=== PATIENT | male | born 1965 | race Caucasian/White ===

== ENCOUNTER 2017-05-06 04:39 | Emergency (ER) | payer OTHER, SELFPAY ==
[2017-05-06 04:48] VITALS: BP 142/84; PULSE 87; RESP 16; TEMP 36.9; O2SAT 96; BMI 47.2
--- NOTE | 2017-05-06 04:55 | XR_ITS ---
XR knee LT 3V HISTORY: ITS.REASON: pain ORDERING PHYSICIAN: Holger Welch MD PATIENT AGE: 51 years COMPARISON: None FINDINGS: There is been prior ACL repair. Moderate osteoarthritic changes are present worse at the medial compartment. No obvious fracture or dislocation. There is increased density in the suprapatellar region consistent with knee joint effusion. Chondrocalcinosis is present involving the lateral meniscus. IMPRESSION: Prior ACL repair with moderate osteoarthritis of the medial compartment and patellofemoral joint with knee joint effusion No acute fracture
--- NOTE | 2017-05-06 05:16 | HMH.EDGENADL ---
ED Disposition Clinical Impression: Arthritis Knee pain, left Qualifiers: Chronicity: acute Qualified Code(s): M25.562 - Pain in left knee Disposition: Home, Self-Care Condition on Discharge: Good Instructions: DI for Knee Pain Additional Instructions: call pcp for follow up Prescriptions: predniSONE [Prednisone 20mg Tab] 20 mg PO DAILY #10 tab Referrals: Gaby Garsia PA [Primary Care Provider] - - Critical Care Critical Care Time: No Attestation: On 05/06/17, the high probability of a clinically significant, sudden or life threatening deterioration of the following system(s) required my full and direct attention, intervention and personal management. The time I documented below is in addition to time spent performing reported procedures but includes the following listed in this critical care notation. Medical Decision Making - Medical Records Medical records reviewed: Yes: I reviewed the patient's medical records. - Jf Inquiry Pt receiving controlled substance: No Vital Signs: 05/06/17 04:48 05/06/17 06:11 Temperature 98.4 F Temperature Source Oral Pulse Rate [Right Brachial] 87 90 Respiratory Rate 16 20 Blood Pressure [Right Arm] 142/84 154/85 Blood Pressure Mean [Right Arm] 103 108 Blood Pressure Source [Right Arm] Automatic Cuff Automatic Cuff Blood Pressure Position [Right Arm] Sitting Sitting 02 Sat by Pulse Oximetry 96 96 Oxygen Delivery Method Room Air Room Air - Lab Data Lab results reviewed: Yes: I reviewed the patient's lab results. Lab Results 05/06/17 05:20: WBC 11.4 H, RBC 4.94, Hgb 14.5, Hct 43.3, MCV 87.7, MCH 29.4, MCHC 33.5, RDW 13.5, Plt Count 235, MPV 7.9, Neut % (Auto) 69.9, Lymph % (Auto) 20.6, [place] % (Auto) 7.8, Eos % (Auto) 1.3, Baso % (Auto) 0.4, Neut # (Auto) 8.0 H, Lymph # (Auto) 2.4, [place] # (Auto) 0.9, Eos # (Auto) 0.1, Baso # (Auto) 0.1 05/06/17 05:20: Sodium 140, Potassium 3.4 L, Chloride 104, Carbon Dioxide 26, Anion Gap 13.4, BUN 19 H, Creatinine 1.21, Estimated Creat Clear 68, Estimated GFR 63, Est GFR ( Amer) 76, Glucose 173 H, Uric Acid 11.2 H, Calcium 9.0, Total Bilirubin 0.7, AST 22, ALT 51, Alkaline Phosphatase 92, Total Protein 8.2, Albumin 3.8, Globulin 4.4 H, Albumin/Globulin Ratio 0.9 L Result diagrams: 05/06/17 05:20 05/06/17 05:20 Orders (Tests/Meds): ED MEDICATIONS Discontinued Medications Generic Name Dose Route Start Last Admin Trade Name Lashaq PRN Reason Stop Dose Admin Meperidine HCl 25 mg 05/06/17 06:17 05/06/17 06:29 Meperidine 25mg/Ml 1ml Syringe IV 05/06/17 06:18 25 mg ONCE ONE Administration Methylprednisolone Sodium Succinate 125 mg 05/06/17 06:16 05/06/17 06:29 Solu-Medrol 125mg/2ml Vial IV 05/06/17 06:17 125 mg ONCE ONE Administration Promethazine HCl 12.5 mg 05/06/17 06:18 05/06/17 06:29 Phenergan 25mg/Ml 1ml Vial IV 05/06/17 06:19 12.5 mg ONCE ONE Administration Sodium Chloride 25 ml 05/06/17 06:18 05/06/17 06:29 Sod Chlor 0.9% 25ml Bag IV 05/06/17 06:19 25 ml ONCE ONE Administration ORDERS Category Date Time Status ESR [Erythrocyte Sedimentation Rate] Stat Lab 05/06/17 05:20 Received - Radiology Data #1 Image(s): Knee Image Reviewed: Yes I reviewed the patient's radiology image Preliminary Findings: No Fracture Seen General Adult HPI - General Chief complaint: PAIN Stated complaint: Pain in Left Knee no Accident occurred Time Seen by Provider: 05/06/17 05:17 Mode of Arrival: Wheelchair Source of Information: Patient, Medical Record Limitations: Physical Limitations Description of Symptoms (Recalled from ER Triage Doc. by RN): reports left knee pain and can't get any relief . reports cortisone shots have helped in the past. left knee is swollen and warm to touch. - History of Present Illness HPI narrative: pt with lt knee pain and swelling with no fever or rash and no trauma - has hx of djd Onset (ago): day(s)
--- NOTE | 2017-05-06 05:21 | ED_ITS ---
ED Disposition Clinical Impression: Arthritis Knee pain, left Qualifiers: Chronicity: acute Qualified Code(s): M25.562 - Pain in left knee Disposition: Home, Self-Care Condition on Discharge: Good Instructions: DI for Knee Pain Additional Instructions: call pcp for follow up Prescriptions: predniSONE [Prednisone 20mg Tab] 20 mg PO DAILY #10 tab Referrals: Gaby Garsia PA [Primary Care Provider] - - Critical Care Critical Care Time: No Attestation: On 05/06/17, the high probability of a clinically significant, sudden or life threatening deterioration of the following system(s) required my full and direct attention, intervention and personal management. The time I documented below is in addition to time spent performing reported procedures but includes the following listed in this critical care notation. Medical Decision Making - Medical Records Medical records reviewed: Yes: I reviewed the patient's medical records. - Jf Inquiry Pt receiving controlled substance: No Vital Signs: 05/06/17 04:48 05/06/17 06:11 Temperature 98.4 F Temperature Source Oral Pulse Rate [Right Brachial] 87 90 Respiratory Rate 16 20 Blood Pressure [Right Arm] 142/84 154/85 Blood Pressure Mean [Right Arm] 103 108 Blood Pressure Source [Right Arm] Automatic Cuff Automatic Cuff Blood Pressure Position [Right Arm] Sitting Sitting 02 Sat by Pulse Oximetry 96 96 Oxygen Delivery Method Room Air Room Air - Lab Data Lab results reviewed: Yes: I reviewed the patient's lab results. Lab Results 05/06/17 05:20: WBC 11.4 H, RBC 4.94, Hgb 14.5, Hct 43.3, MCV 87.7, MCH 29.4, MCHC 33.5, RDW 13.5, Plt Count 235, MPV 7.9, Neut % (Auto) 69.9, Lymph % (Auto) 20.6, [place] % (Auto) 7.8, Eos % (Auto) 1.3, Baso % (Auto) 0.4, Neut # (Auto) 8.0 H, Lymph # (Auto) 2.4, [place] # (Auto) 0.9, Eos # (Auto) 0.1, Baso # (Auto) 0.1 05/06/17 05:20: Sodium 140, Potassium 3.4 L, Chloride 104, Carbon Dioxide 26, Anion Gap 13.4, BUN 19 H, Creatinine 1.21, Estimated Creat Clear 68, Estimated GFR 63, Est GFR ( Amer) 76, Glucose 173 H, Uric Acid 11.2 H, Calcium 9.0 , Total Bilirubin 0.7, AST 22, ALT 51, Alkaline Phosphatase 92, Total Protein 8.2, Albumin 3.8, Globulin 4.4 H, Albumin/Globulin Ratio 0.9 L Result diagrams: 05/06/17 05:20 05/06/17 05:20 Orders (Tests/Meds): ED MEDICATIONS Discontinued Medications Generic Name Dose Route Start Last Admin Trade Name Freq PRN Reason Stop Dose Admin Meperidine HCl 25 mg 05/06/17 06:17 05/06/17 06:29 Meperidine 25mg/Ml 1ml Syringe IV 05/06/17 06:18 25 mg ONCE ONE Administration Methylprednisolone Sodium Succinate 125 mg 05/06/17 06:16 05/06/17 06:29 Solu-Medrol 125mg/2ml Vial IV 05/06/17 06:17 125 mg ONCE ONE Administration Promethazine HCl 12.5 mg 05/06/17 06:18 05/06/17 06:29 Phenergan 25mg/Ml 1ml Vial IV 05/06/17 06:19 12.5 mg ONCE ONE Administration Sodium Chloride 25 ml 05/06/17 06:18 05/06/17 06:29 Sod Chlor 0.9% 25ml Bag IV 05/06/17 06:19 25 ml ONCE ONE Administration ORDERS Category Date Time Status ESR [Erythrocyte Sedimentation Rate] Stat Lab 05/06/17 05:20 Received - Radiology Data #1 Image(s): Knee Image Reviewed: Yes I reviewed the patient's radiology image Prelimin
[2017-05-06 06:08] LABS: Basophils # 0.1 K/mm3 (0-0.2); Basophils % 0.4 % (0.1-2.0); Eosinophils # 0.1 K/mm3 (0.0-0.4); Eosinophils % 1.3 % (0.1-12.0); Hematocrit 43.3 % (42.0-52.0); Hemoglobin 14.5 g/dL (14.1-18.0); Lymphocytes # 2.4 K/mm3 (0.7-4.5); Lymphocytes % 20.6 K/mm3 (10-50); Mean Corpuscular HGB Conc 33.5 g/dL (31.8-35.4); Mean Corpuscular Hemoglobin 29.4 pg (27.0-31.2); Mean Corpuscular Volume 87.7 fl (80-94); Mean Platelet Volume 7.9 fl (7.4-10.4); Monocytes # 0.9 K/mm3 (0.1-1.0); Monocytes % 7.8 % (1.7-9.3); Neutrophils % 69.9 % (37.0-80.0); Platelet Count 235 K/mm3 (142-424); Red Blood Count 4.94 M/mm3 (4.60-6.20); Red Cell Distribution Width 13.5 % (11.5-17.5); White Blood Count 11.4 K/mm3 (4.8-10.8)
[2017-05-06 06:11] VITALS: BP 154/85; PULSE 90; RESP 20; O2SAT 96
[2017-05-06 06:22] LABS: Alanine Aminotransferase 51 U/L (12-78); Albumin Level 3.8 gm/dL (3.4-5.0); Albumin/Globulin Ratio 0.9 (1.1-1.8); Alkaline Phosphatase 92 U/L (46-116); Anion Gap 13.4 mEq/L (5-15); Aspartate Amino Transferase 22 U/L (15-37); Bilirubin,Total 0.7 mg/dL (0.2-1.0); Blood Urea Nitrogen 19 mg/dL (7-18); Carbon Dioxide 26 mmol/L (21.0-32.0); Chloride 104 mmol/L (98-107); Creatinine Clearance Estimated 68 mL/min (0-300); Creatinine,Serum 1.21 mg/dL (0.70-1.30); Estimated Glomerular Filt Rate 63 ml/min (>60); GFR (African American) 76 ML/MIN (>60); Globulin 4.4 gm/dl (1.3-3.2); Glucose 173 mg/dL (74-106); Potassium 3.4 mmoL/L (3.5-5.1); Sodium 140 mmol/L (136-145); Total Protein,Serum 8.2 gm/dL (6.4-8.2); Uric Acid 11.2 mg/dL (2.6-7.2)
[2017-05-06 07:26] LABS: Erythrocyte Sedimentation Rate 43 mm/hr (0-20)
[2017-05-06 09:03] VITALS: BP 137/70; PULSE 67; RESP 16; TEMP 37.1; O2SAT 98
== END 2017-05-06 09:06 | disposition home or self-care (01) ==
PROVIDERS: Emergency Provider Emergency Medicine; Family Provider Physician Assistant; PCP Physician Assistant
DX: M25.562 Pain in left knee (principal); M17.12 Unilateral primary osteoarthritis, left knee; I10 Essential (primary) hypertension; E55.9 Vitamin D deficiency, unspecified
CPT/HCPCS: 73562; 80053; 84550; 85025; 85651; 96374; 96375; 99283

== ENCOUNTER → 2018-07-08 13:30 | Outpatient (CLI) | payer BC, SELFPAY ==
[2018-07-08 13:55] LABS: Basophils # 0.1 K/mm3 (0-0.2); Basophils % 0.8 % (0.1-2.0); Eosinophils # 0.2 K/mm3 (0.0-0.4); Eosinophils % 2.6 % (0.1-12.0); Hematocrit 46.6 % (42.0-52.0); Hemoglobin 16.4 g/dL (14.1-18.0); Lymphocytes # 2.2 K/mm3 (0.7-4.5); Lymphocytes % 29.1 % (10-50); Mean Corpuscular HGB Conc 35.2 g/dL (31.8-35.4); Mean Corpuscular Hemoglobin 30.6 pg (27.0-31.2); Mean Corpuscular Volume 86.9 fl (80-94); Mean Platelet Volume 8.2 fl (7.4-10.4); Monocytes # 0.4 K/mm3 (0.1-1.0); Monocytes % 5.3 % (1.7-9.3); Neutrophils # 4.6 K/mm3 (1.8-7.8); Neutrophils % 62.2 % (37.0-80.0); Platelet Count 233 K/mm3 (142-424); Red Blood Count 5.37 M/mm3 (4.60-6.20); Red Cell Distribution Width 13.5 % (11.5-17.5); White Blood Count 7.4 K/mm3 (4.8-10.8)
[2018-07-08 14:24] LABS: Anion Gap 16.5 mEq/L (5-15); Blood Urea Nitrogen 30 mg/dL (7-18); Carbon Dioxide 24 mmol/L (21.0-32.0); Chloride 97 mmol/L (98-107); Creatinine,Serum 1.18 mg/dL (0.70-1.30); Potassium 4.5 mmoL/L (3.5-5.1); Sodium 133 mmol/L (136-145)
[2018-07-08 14:25] LABS: Alanine Aminotransferase 73 U/L (12-78); Albumin Level 3.9 gm/dL (3.4-5.0); Alkaline Phosphatase 97 U/L (46-116); Aspartate Amino Transferase 40 U/L (15-37); Bilirubin,Total 0.6 mg/dL (0.2-1.0); Calcium 9.4 mg/dL (8.5-10.1); Chol/HDL Ratio 8.1 (1-3.5); Cholesterol 228 mg/dL (140-200); Estimated Glomerular Filt Rate 65 ml/min (>60); GFR (African American) 78 ML/MIN (>60); Globulin 3.8 gm/dl (1.3-3.2); Glucose 366 mg/dL (74-106); HDL Cholesterol 28 mg/dL (27-67); T4 (Thyroxine) 9.7 ug/dl (4.7-13.3); Thyroid Stimulating Hormone 2.12 uIU/ml (0.358-3.740); Total Protein,Serum 7.7 gm/dL (6.4-8.2)
[2018-07-08 14:26] LABS: Triglycerides 655 mg/dL (30-200)
[2018-07-08 16:42] LABS: Hemoglobin A1C 10.4 % (0.0-7.0)
[2018-07-09 12:34] LABS: PSA, Free 0.12 ng/mL; Prostate Specific Ag 0.2 ng/mL (0.0-4.0); Vitamin D 25 Hydroxy 10.7 ng/mL (30.0-100.0)
[2018-07-09 12:35] LABS: Microalbumin, Urine <3.0 ug/mL (Not Estab.)
== END ==
PROVIDERS: Visit Provider Physician Assistant
DX: E11.9 Type 2 diabetes mellitus without complications (principal); E55.9 Vitamin D deficiency, unspecified
CPT/HCPCS: 80053; 80061; 82043; 82652; 83036; 84153; 84154; 84436; 84443; 85025

== ENCOUNTER → 2018-12-11 16:54 | Outpatient (CLI) | payer BC, SELFPAY ==
[2018-12-11 17:09] LABS: Basophils # 0.1 K/mm3 (0-0.2); Basophils % 0.6 % (0.1-2.0); Eosinophils # 0.2 K/mm3 (0.0-0.4); Eosinophils % 2.6 % (0.1-12.0); Hematocrit 46.8 % (42.0-52.0); Hemoglobin 15.4 g/dL (14.1-18.0); Lymphocytes # 2.3 K/mm3 (0.7-4.5); Lymphocytes % 27.7 % (10-50); Mean Corpuscular Hemoglobin 30.3 pg (27.0-31.2); Mean Corpuscular Volume 91.8 fl (80-94); Mean Platelet Volume 9.1 fl (7.4-10.4); Monocytes # 0.5 K/mm3 (0.1-1.0); Monocytes % 6.6 % (1.7-9.3); Neutrophils # 5.1 K/mm3 (1.8-7.8); Neutrophils % 62.5 % (37.0-80.0); Platelet Count 263 K/mm3 (142-424); Red Cell Distribution Width 13.4 % (11.5-17.5); White Blood Count 8.1 K/mm3 (4.8-10.8)
[2018-12-11 17:26] LABS: Alanine Aminotransferase 93 U/L (12-78); Albumin Level 3.9 gm/dL (3.4-5.0); Albumin/Globulin Ratio 0.9 (1.1-1.8); Alkaline Phosphatase 93 U/L (46-116); Anion Gap 15.8 mEq/L (5-15); Aspartate Amino Transferase 127 U/L (15-37); Bilirubin,Total 0.6 mg/dL (0.2-1.0); Blood Urea Nitrogen 37 mg/dL (7-18); Calcium 9.3 mg/dL (8.5-10.1); Carbon Dioxide 24 mmol/L (21.0-32.0); Chloride 102 mmol/L (98-107); Chol/HDL Ratio 4.9 (1-3.5); Cholesterol 165 mg/dL (140-200); Creatinine,Serum 1.86 mg/dL (0.70-1.30); Estimated Glomerular Filt Rate 38 ml/min (>60); Free T4 (Free Thyroxine) 1.27 ng/dl (0.76-1.46); GFR (African American) 46 ML/MIN (>60); Globulin 4.3 gm/dl (1.3-3.2); Glucose 309 mg/dL (74-106); HDL Cholesterol 34 mg/dL (27-67); LDL Cholesterol 78 mg/dL (0-130); Potassium 4.8 mmoL/L (3.5-5.1); Sodium 137 mmol/L (136-145); Thyroid Stimulating Hormone 2.47 uIU/ml (0.358-3.740); Total Protein,Serum 8.2 gm/dL (6.4-8.2); Triglycerides 267 mg/dL (30-200); VLDL Cholesterol 53 mg/dL (0-40)
[2018-12-11 17:38] LABS: Hemoglobin A1C 11.3 % (0.0-7.0)
== END ==
PROVIDERS: Visit Provider Nurse Practitioner Family
DX: E11.9 Type 2 diabetes mellitus without complications (principal)
CPT/HCPCS: 80053; 80061; 83036; 84439; 84443; 85025

== ENCOUNTER → 2019-01-29 13:49 | Outpatient (CLI) | payer BC, SELFPAY ==
--- NOTE | 2019-01-29 13:51 | CA_ITS ---
APPROVED REPORT EXAM: Comprehensive 2D, Doppler, and color-flow Echocardiogram Flight Control Specialist: Arely Landeros CRT Ht: 5 ft 7 in Wt: 331lbs BSA: 2.50 BP: 156/89 mmHg Indications: abn ekg, obesity, htn, dm,hld 2D Dimensions LVOT 1.95 cm (M/F) 1.5-2.5 M-Mode Dimensions RVDd 2.26 cm (0.9-2.6) LVDd 5.38 cm (3.5-5.7) LVDs 3.19 cm (3.5-5.7) IVSd 1.53 cm (0.6-1.1) PWd 1.00 cm (0.6-1.1) EF (Teich) 71.00% FS 40.70% EDV (Teich) 140.10 mL ESV (Teich) 40.60 mL LV Diastology E/A Ratio 0.68 Mitral Valve MV A Velocity 84.00 (40-130 cm/s) Left Ventricle Left atrium is mildly enlarged, left ventricle is normal size, mild concentric left ventricular hypertrophy, visually estimated ejection fraction 55% with no regional wall motion abnormality, grade 1 diastolic dysfunction seen without tissue Doppler evidence of raise left atrial pressure. Right Ventricle Right atrium and right ventricular normal size and contractility. Aortic Valve Aortic valve is minimally thickened and fibrosed. There is no aortic stenosis or aortic insufficiency. Mitral Valve Mitral valve is grossly normal, there is mild mitral regurgitation. Tricuspid Valve Tricuspid valve is grossly normal, there is mild tricuspid regurgitation. Tricuspid regurgitation jet velocity is inadequate for calculation of the right ventricular systolic pressure, Pulmonic Valve Pulmonic valve is poorly visualized. Great Vessels Aortic root is normal size. Pericardium No significant pericardial effusion noted. Conclusion 1. Mildly enlarged left atrium, normal left ventricular size, mild concentric left ventricular hypertrophy, visually estimated ejection fraction 55% with no regional wall motion abnormality, grade 1 diastolic dysfunction seen without tissue Doppler evidence of raise left atrial pressure. 2. Mild mitral and tricuspid regurgitation. 3. No significant pericardial effusion noted. Electronically signed by : Jadiel Santana, 02/01/2019 05:52:14
== END ==
PROVIDERS: PCP Physician Assistant; Visit Provider Nurse Practitioner Family
DX: R94.31 Abnormal electrocardiogram [ECG] [EKG] (principal); I10 Essential (primary) hypertension
CPT/HCPCS: 93306

== ENCOUNTER → 2019-04-30 12:53 | Outpatient (CLI) | payer BC, SELFPAY ==
[2019-04-30 14:31] LABS: Anion Gap 14.3 mEq/L (5-15); Blood Urea Nitrogen 12 mg/dl (9-20); Calcium 9.8 mg/dl (8.4-10.2); Carbon Dioxide 27 mmol/L (22.0-30.0); Chloride 103 mmol/L (98-107); Estimated Glomerular Filt Rate 101 ml/min (>60); GFR (African American) 122 ML/MIN (>60); Glucose 239 mg/dl (74-100); Potassium 4.3 mmoL/L (3.5-5.1); Sodium 140 mmol/L (136-145)
== END ==
PROVIDERS: Visit Provider Emergency Medicine
DX: E11.9 Type 2 diabetes mellitus without complications (principal); Z79.84 Long term (current) use of oral hypoglycemic drugs
CPT/HCPCS: 80048

== ENCOUNTER → 2019-05-07 13:39 | Outpatient (CLI) | payer BC, SELFPAY ==
[2019-05-07 14:17] LABS: Basophils % 0.5 % (0.1-2.0); Eosinophils # 0.2 K/mm3 (0.0-0.4); Eosinophils % 2.6 % (0.1-12.0); Hematocrit 45.1 % (42.0-52.0); Hemoglobin 14.4 g/dL (14.1-18.0); Lymphocytes # 2.1 K/mm3 (0.7-4.5); Lymphocytes % 26.7 % (10-50); Mean Corpuscular HGB Conc 31.9 g/dL (31.8-35.4); Mean Corpuscular Hemoglobin 28.6 pg (27.0-31.2); Mean Corpuscular Volume 89.4 fl (80-94); Mean Platelet Volume 8.6 fl (7.4-10.4); Monocytes # 0.4 K/mm3 (0.1-1.0); Monocytes % 5.4 % (1.7-9.3); Neutrophils % 64.8 % (37.0-80.0); Platelet Count 264 K/mm3 (142-424); Red Blood Count 5.04 M/mm3 (4.60-6.20); Red Cell Distribution Width 13.7 % (11.5-17.5); White Blood Count 7.7 K/mm3 (4.8-10.8)
[2019-05-07 14:23] LABS: Alanine Aminotransferase 36 U/L (12-78); Albumin Level 4.1 g/dl (3.5-5.0); Albumin/Globulin Ratio 1.2 (1.1-1.8); Alkaline Phosphatase 77 U/L (38-126); Anion Gap 15.6 mEq/L (5-15); Aspartate Amino Transferase 55 U/L (17-59); Bilirubin,Total 0.7 mg/dl (0.2-1.3); Blood Urea Nitrogen 23 mg/dl (9-20); Calcium 9.7 mg/dl (8.4-10.2); Carbon Dioxide 25 mmol/L (22.0-30.0); Chloride 102 mmol/L (98-107); Chol/HDL Ratio 3.3 (1-3.5); Cholesterol 104 mg/dl (140-200); Estimated Glomerular Filt Rate 78 ml/min (>60); GFR (African American) 95 ML/MIN (>60); Globulin 3.5 g/dL (1.3-3.2); Glucose 220 mg/dl (74-100); HDL Cholesterol 32 mg/dl (40-60); Potassium 4.6 mmoL/L (3.5-5.1); Sodium 138 mmol/L (136-145); Total Protein,Serum 7.6 g/dl (6.3-8.2); Triglycerides 152 mg/dl (30-150); VLDL Cholesterol 30 mg/dL (0-40)
[2019-05-07 14:34] LABS: Direct LDL Cholesterol 55.01 mg/dL (100-129)
[2019-05-07 14:40] LABS: T4 (Thyroxine) 12.2 ug/dl (5.53-11.0)
[2019-05-07 14:53] LABS: Thyroid Stimulating Hormone 3.82 uIU/mL (0.465-4.68)
[2019-05-08 07:18] LABS: Creatinine, Urine 155.4 mg/dL (Not Estab.); Microalbumin, Urine 22.7 ug/mL (Not Estab.)
[2019-05-08 09:52] LABS: Vitamin D 25 Hydroxy 13.8 ng/mL (30.0-100.0)
== END ==
PROVIDERS: Visit Provider Nurse Practitioner Family
DX: E11.9 Type 2 diabetes mellitus without complications (principal); E55.9 Vitamin D deficiency, unspecified; E78.5 Hyperlipidemia, unspecified; I10 Essential (primary) hypertension; Z79.84 Long term (current) use of oral hypoglycemic drugs
CPT/HCPCS: 80053; 80061; 82043; 82570; 82652; 83036; 84436; 84443; 85025

== ENCOUNTER → 2019-05-17 08:04 | Outpatient (CLI) | payer BC, SELFPAY ==
--- NOTE | 2019-05-17 08:08 | XR_ITS ---
PROCEDURE: XR KNEE RT 4V CLINICAL INDICATION: right knee pain Limited range of motion with no known injury COMPARISON: [id number] [id number] from 05/28/2014 [id number] XR knee LT 3V from 05/06/2017 FINDINGS: No fracture or dislocation. No lytic or blastic change. There is normal mineralization. There is mild asymmetrical loss of the lateral patellofemoral cartilaginous joint space consistent with osteoarthritis and or chondromalacia patella. Mild medial compartment osteoarthritis is also apparent with slight asymmetrical loss of cartilaginous joint space. Other findings:There is a small suprapatellar joint effusion. IMPRESSION: No acute bone findings. Degenerative findings with small joint effusion. Dictated by: Winston Frank 05/17/2019 10:11 Electronically signed by Winston Frank in [place] 05/17/2019 10:11
== END ==
PROVIDERS: PCP Nurse Practitioner Family; Visit Provider Orthopaedic Surgery
DX: M25.561 Pain in right knee (principal)
CPT/HCPCS: 73564; 87070; 87205

== ENCOUNTER → 2019-05-19 08:32 | Outpatient (CLI) | payer BC, SELFPAY ==
--- NOTE | 2019-05-19 09:36 | MR_ITS ---
PROCEDURE: MR KNEE RT WO CON CLINICAL INDICATION: rt knee pain/ evaluate for meniscal tear Patient states knee was aspirated on Friday with some relief pain, no known injury COMPARISON: No exams were available for comparison TECHNIQUE: Routine multi planar multisequence exam was performed. FINDINGS: There is chondromalacia patella with full-thickness loss of the patellar hyaline cartilage at the lateral patellofemoral facet. There is bone marrow edema in the adjacent lateral patella likely reactive associated with chondromalacia patella.Moderate sized joint effusion is noted. There is some signal abnormality within the posterior fibers of the vastus medialis muscle consistent with strain/partial tearing. There is some signal abnormality in the adjacent soft tissues consistent with hemorrhage or edema. There is a Waldron cyst 1.8 x 6.1 centimeters in AP and transverse dimensions containing some internal debris suggesting that it is complicated by hemorrhage or infection. Increased signal hyperintense on T2 sequences is seen in the subcutaneous fat planes posterior and lateral to the knee joint and proximal tibia and fibula and in the anterior fat planes anterior to the patella and patellar tendon extending to proximal tibia consistent with generalized edema/inflammation.. Anterior and posterior cruciate ligaments quadriceps and patellar tendons and the medial and lateral collateral ligament complexes appear intact. Grade 2 signal consistent with degeneration is seen in the menisci greatest in the anterior horn of the lateral meniscus. There is no definite meniscal tear. IMPRESSION: Strain/partial tearing fibers of the vastus medialis muscle. High-grade chondromalacia patella with joint effusion. Waldron's cyst appearing complicated with internal debris possibly hemorrhagic or infected. Meniscal degeneration without definite tear. Dictated by: Winston Frank 05/19/2019 12:31 Electronically signed by Winston Frank in [place] 05/19/2019 12:31
== END ==
PROVIDERS: PCP Nurse Practitioner Family; Visit Provider Orthopaedic Surgery
DX: M25.561 Pain in right knee (principal)
CPT/HCPCS: 73721

== ENCOUNTER → 2019-06-03 15:25 | Outpatient (CLI) | payer BC, SELFPAY ==
[2019-06-03 16:32] LABS: Chloride 102 mmol/L (98-107); Sodium 139 mmol/L (136-145)
[2019-06-03 16:33] LABS: Potassium 4.4 mmoL/L (3.5-5.1)
[2019-06-03 16:35] LABS: Anion Gap 17.4 mEq/L (5-15); Blood Urea Nitrogen 16 mg/dl (9-20); Carbon Dioxide 24 mmol/L (22.0-30.0); Estimated Glomerular Filt Rate 101 ml/min (>60); GFR (African American) 122 ML/MIN (>60)
[2019-06-03 16:36] LABS: Calcium 10.1 mg/dl (8.4-10.2); Glucose 342 mg/dl (74-100)
== END ==
PROVIDERS: Visit Provider Nurse Practitioner Family
DX: N28.9 Disorder of kidney and ureter, unspecified (principal); E66.9 Obesity, unspecified
CPT/HCPCS: 80048

== ENCOUNTER → 2019-11-26 18:43 | Outpatient (CLI) | payer BC, SELFPAY ==
[2019-11-26 19:18] LABS: Alanine Aminotransferase 34 U/L (12-78); Albumin Level 3.7 g/dl (3.5-5.0); Albumin/Globulin Ratio 1.2 (1.1-1.8); Alkaline Phosphatase 86 U/L (38-126); Anion Gap 16.2 mEq/L (5-15); Aspartate Amino Transferase 45 U/L (17-59); Bilirubin,Total 0.5 mg/dl (0.2-1.3); Blood Urea Nitrogen 12 mg/dl (9-20); Calcium 9.1 mg/dl (8.4-10.2); Carbon Dioxide 25 mmol/L (22.0-30.0); Chloride 103 mmol/L (98-107); Estimated Glomerular Filt Rate 118 ml/min (>60); GFR (African American) 142 ML/MIN (>60); Globulin 3.1 g/dL (1.3-3.2); Potassium 4.2 mmoL/L (3.5-5.1); Sodium 140 mmol/L (136-145); Total Protein,Serum 6.8 g/dl (6.3-8.2)
[2019-11-26 19:33] LABS: Glucose 417 mg/dl (74-100)
== END ==
PROVIDERS: Visit Provider Nurse Practitioner Family
DX: Z00.00 Encounter for general adult medical examination without abnormal findings (principal); E11.9 Type 2 diabetes mellitus without complications; E66.01 Morbid (severe) obesity due to excess calories
CPT/HCPCS: 80053

== ENCOUNTER → 2019-12-23 15:19 | Outpatient (CLI) | payer BC, SELFPAY ==
[2019-12-23 17:16] LABS: Chloride 96 mmol/L (98-107); Sodium 135 mmol/L (136-145)
[2019-12-23 17:17] LABS: Potassium 4.4 mmoL/L (3.5-5.1)
[2019-12-23 17:20] LABS: Anion Gap 19.4 mEq/L (5-15); Blood Urea Nitrogen 16 mg/dl (9-20); Calcium 9.8 mg/dl (8.4-10.2); Carbon Dioxide 24 mmol/L (22.0-30.0); Estimated Glomerular Filt Rate 101 ml/min (>60); GFR (African American) 122 ML/MIN (>60)
[2019-12-23 17:41] LABS: Glucose 594 mg/dl (74-100)
[2019-12-23 18:32] LABS: Coronavirus 19 IgG Antibody Positive (Negative)
[2019-12-23 18:36] LABS: Coronavirus 19 IgM Antibody Positive (Negative)
== END ==
PROVIDERS: Visit Provider Nurse Practitioner Family
DX: Z01.84 Encounter for antibody response examination (principal); E11.9 Type 2 diabetes mellitus without complications; Z79.84 Long term (current) use of oral hypoglycemic drugs
CPT/HCPCS: 36415; 80048; 86328

== ENCOUNTER → 2020-03-10 14:13 | Outpatient (CLI) | payer BC, SELFPAY ==
[2020-03-10 15:06] LABS: Creatinine,Urine Random 105 mg/dL (Not Estab.)
[2020-03-10 15:08] LABS: Microalbumin/Creatinine Ratio 32.4
[2020-03-10 15:14] LABS: Basophils # 0.1 K/mm3 (0-0.2); Basophils % 0.6 % (0.1-2.0); Eosinophils # 0.2 K/mm3 (0.0-0.4); Eosinophils % 1.8 % (0.1-12.0); Hematocrit 51.2 % (42.0-52.0); Hemoglobin 17.2 g/dL (14.1-18.0); Lymphocytes # 2.2 K/mm3 (0.7-4.5); Mean Corpuscular HGB Conc 33.6 g/dL (31.8-35.4); Mean Corpuscular Hemoglobin 29.5 pg (27.0-31.2); Mean Corpuscular Volume 87.9 fl (80-94); Mean Platelet Volume 9.2 fl (7.4-10.4); Monocytes # 0.6 K/mm3 (0.1-1.0); Monocytes % 6.1 % (1.7-9.3); Neutrophils # 7.3 K/mm3 (1.8-7.8); Neutrophils % 70.4 % (37.0-80.0); Platelet Count 218 K/mm3 (142-424); Red Blood Count 5.82 M/mm3 (4.60-6.20); Red Cell Distribution Width 14.4 % (11.5-17.5); White Blood Count 10.4 K/mm3 (4.8-10.8)
[2020-03-10 15:23] LABS: Alanine Aminotransferase 49 U/L (12-78); Albumin Level 4.7 g/dl (3.5-5.0); Albumin/Globulin Ratio 1.3 (1.1-1.8); Alkaline Phosphatase 92 U/L (38-126); Anion Gap 15.3 mEq/L (5-15); Aspartate Amino Transferase 52 U/L (17-59); Bilirubin,Total 0.7 mg/dl (0.2-1.3); Blood Urea Nitrogen 17 mg/dl (9-20); Calcium 10.3 mg/dl (8.4-10.2); Carbon Dioxide 26 mmol/L (22.0-30.0); Chloride 102 mmol/L (98-107); Chol/HDL Ratio 4.8 (1-3.5); Cholesterol 174 mg/dl (140-200); Estimated Glomerular Filt Rate 101 ml/min (>60); GFR (African American) 122 ML/MIN (>60); Globulin 3.7 g/dL (1.3-3.2); Glucose 375 mg/dl (74-100); HDL Cholesterol 36 mg/dl (40-60); Potassium 4.3 mmoL/L (3.5-5.1); Sodium 139 mmol/L (136-145); Total Protein,Serum 8.4 g/dl (6.3-8.2); Triglycerides 326 mg/dl (30-150); VLDL Cholesterol 65 mg/dL (0-40)
[2020-03-10 15:35] LABS: Direct LDL Cholesterol 77.93 mg/dL (100-129)
[2020-03-10 15:41] LABS: T4 (Thyroxine) 11.5 ug/dl (5.53-11.0)
[2020-03-10 15:52] LABS: 25-OH Vitamin D, Total < 12.8 ng/mL (30-100); Hemoglobin A1C 11.6 % (4.0-6.0)
[2020-03-10 17:55] LABS: Prostate Specific Ag Screen 0.1 ng/ml (0.0-4.0); Thyroid Stimulating Hormone 1.79 uIU/mL (0.465-4.68)
== END ==
PROVIDERS: Visit Provider Nurse Practitioner Family
DX: E11.9 Type 2 diabetes mellitus without complications (principal); E55.9 Vitamin D deficiency, unspecified; E78.5 Hyperlipidemia, unspecified; I10 Essential (primary) hypertension; Z12.5 Encounter for screening for malignant neoplasm of prostate; Z79.84 Long term (current) use of oral hypoglycemic drugs
CPT/HCPCS: 80053; 80061; 82043; 82306; 82570; 83036; 84436; 84443; 85025; G0103

== ENCOUNTER → 2020-06-16 15:43 | Outpatient (CLI) | payer BC, SELFPAY ==
[2020-06-16 15:57] LABS: Alanine Aminotransferase 37 U/L (12-78); Albumin Level 4.5 g/dl (3.5-5.0); Albumin/Globulin Ratio 1.5 (1.1-1.8); Alkaline Phosphatase 88 U/L (38-126); Anion Gap 15.3 mEq/L (5-15); Aspartate Amino Transferase 42 U/L (17-59); Bilirubin,Total 0.6 mg/dl (0.2-1.3); Blood Urea Nitrogen 16 mg/dl (9-20); Calcium 9.6 mg/dl (8.4-10.2); Carbon Dioxide 24 mmol/L (22.0-30.0); Chloride 106 mmol/L (98-107); Cholesterol 179 mg/dl (140-200); Estimated Glomerular Filt Rate 101 ml/min (>60); GFR (African American) 122 ML/MIN (>60); Globulin 3.1 g/dL (1.3-3.2); Glucose 294 mg/dl (74-100); HDL Cholesterol 36 mg/dl (40-60); Potassium 4.3 mmoL/L (3.5-5.1); Sodium 141 mmol/L (136-145); Total Protein,Serum 7.6 g/dl (6.3-8.2)
[2020-06-16 16:01] LABS: Triglycerides 431 mg/dl (30-150)
[2020-06-16 16:04] LABS: Basophils # 0.1 K/mm3 (0-0.2); Basophils % 0.6 % (0.1-2.0); Eosinophils # 0.3 K/mm3 (0.0-0.4); Hematocrit 45.4 % (42.0-52.0); Hemoglobin 15.6 g/dL (14.1-18.0); Lymphocytes # 2.1 K/mm3 (0.7-4.5); Lymphocytes % 25.1 % (10-50); Mean Corpuscular HGB Conc 34.4 g/dL (31.8-35.4); Mean Corpuscular Hemoglobin 29.2 pg (27.0-31.2); Mean Corpuscular Volume 84.9 fl (80-94); Mean Platelet Volume 8.8 fl (7.4-10.4); Monocytes # 0.5 K/mm3 (0.1-1.0); Monocytes % 5.3 % (1.7-9.3); Neutrophils # 5.6 K/mm3 (1.8-7.8); Platelet Count 218 K/mm3 (142-424); Red Blood Count 5.35 M/mm3 (4.60-6.20); Red Cell Distribution Width 13.9 % (11.5-17.5); White Blood Count 8.5 K/mm3 (4.8-10.8)
[2020-06-16 16:08] LABS: Direct LDL Cholesterol 80.94 mg/dL (100-129)
[2020-06-16 16:14] LABS: 25-OH Vitamin D, Total 18.9 ng/mL (30-100)
[2020-06-16 16:15] LABS: T4 (Thyroxine) 10.1 ug/dl (5.53-11.0)
[2020-06-16 16:28] LABS: Thyroid Stimulating Hormone 1.91 uIU/mL (0.465-4.68)
[2020-06-16 17:21] LABS: Hemoglobin A1C 12.9 % (4.0-6.0)
== END ==
PROVIDERS: Visit Provider Nurse Practitioner Family
DX: E11.9 Type 2 diabetes mellitus without complications (principal); E55.9 Vitamin D deficiency, unspecified; I10 Essential (primary) hypertension; E66.9 Obesity, unspecified; E78.5 Hyperlipidemia, unspecified; G62.9 Polyneuropathy, unspecified; Z79.4 Long term (current) use of insulin; Z68.42 Body mass index [BMI] 45.0-49.9, adult
CPT/HCPCS: 80053; 80061; 82306; 83036; 84436; 84443; 85025

== ENCOUNTER → 2020-11-29 18:10 | Outpatient (CLI) | payer BC, SELFPAY ==
[2020-11-29 18:54] LABS: Alanine Aminotransferase 46 U/L (12-78); Albumin Level 4.4 g/dl (3.5-5.0); Albumin/Globulin Ratio 1.3 (1.1-1.8); Alkaline Phosphatase 95 U/L (38-126); Anion Gap 15.6 mEq/L (5-15); Aspartate Amino Transferase 62 U/L (17-59); Basophils # 0.1 K/mm3 (0-0.2); Basophils % 0.7 % (0.1-2.0); Bilirubin,Total 0.6 mg/dl (0.2-1.3); Blood Urea Nitrogen 17 mg/dl (9-20); Calcium 9.6 mg/dl (8.4-10.2); Carbon Dioxide 26 mmol/L (22.0-30.0); Chloride 102 mmol/L (98-107); Chol/HDL Ratio 6.1 (1-3.5); Cholesterol 194 mg/dl (140-200); Eosinophils # 0.3 K/mm3 (0.0-0.4); Eosinophils % 2.8 % (0.1-12.0); Estimated Glomerular Filt Rate 69 ml/min (>60); GFR (African American) 84 ML/MIN (>60); Globulin 3.5 g/dL (1.3-3.2); HDL Cholesterol 32 mg/dl (40-60); Hematocrit 50.5 % (42.0-52.0); Hemoglobin 16.8 g/dL (14.1-18.0); Lymphocytes # 2.6 K/mm3 (0.7-4.5); Lymphocytes % 27.1 % (10-50); Mean Corpuscular HGB Conc 33.3 g/dL (31.8-35.4); Mean Corpuscular Volume 90.2 fl (80-94); Mean Platelet Volume 9.1 fl (7.4-10.4); Monocytes # 0.6 K/mm3 (0.1-1.0); Neutrophils # 6.1 K/mm3 (1.8-7.8); Neutrophils % 63.3 % (37.0-80.0); Platelet Count 239 K/mm3 (142-424); Potassium 4.6 mmoL/L (3.5-5.1); Red Cell Distribution Width 13.7 % (11.5-17.5); Sodium 139 mmol/L (136-145); Total Protein,Serum 7.9 g/dl (6.3-8.2); White Blood Count 9.6 K/mm3 (4.8-10.8)
[2020-11-29 19:06] LABS: Direct LDL Cholesterol 57.85 mg/dL (100-129)
[2020-11-29 19:10] LABS: 25-OH Vitamin D, Total 26.2 ng/mL (30-100)
[2020-11-29 19:25] LABS: Thyroid Stimulating Hormone 1.93 uIU/mL (0.465-4.68)
[2020-11-29 19:40] LABS: Hemoglobin A1C > 14.0 % (4.0-6.0)
[2020-11-29 21:24] LABS: Triglycerides 805 mg/dl (30-150)
[2020-11-29 21:25] LABS: Glucose 472 mg/dl (74-100)
[2020-12-01 11:15] LABS: C-Peptide 8.4 ng/mL (1.1-4.4)
== END ==
PROVIDERS: Visit Provider Nurse Practitioner Family
DX: E11.9 Type 2 diabetes mellitus without complications (principal); E55.9 Vitamin D deficiency, unspecified; E66.9 Obesity, unspecified; E78.5 Hyperlipidemia, unspecified; I10 Essential (primary) hypertension; N28.9 Disorder of kidney and ureter, unspecified; Z79.84 Long term (current) use of oral hypoglycemic drugs; Z68.42 Body mass index [BMI] 45.0-49.9, adult
CPT/HCPCS: 80053; 80061; 82306; 83036; 84436; 84443; 84681; 85025